=== PATIENT | female | born 1985 ===

== ENCOUNTER 2022-05-04 15:23 | Inpatient (IN) | payer MEDICAID, OTHER ==
[2022-05-04] MEDS ORDERED: MAGNESIUM HYDROXIDE 2,400 MG/10 ML CUP PO PRN (15:50)
[2022-05-04] MEDS ORDERED: MAG HYDROX/AL HYDROX/SIMETH 30 ML CUP PO PRN (15:50)
[2022-05-04] MEDS ORDERED: LORazepam 1 MG TAB PO PRN (15:50)
[2022-05-04] MEDS ORDERED: HALOPERIDOL LACTATE 5 MG/ML 1 ML VIAL IM PRN (15:50)
[2022-05-04] MEDS ORDERED: LORazepam 2 MG/ML INJ IM PRN (15:52)
[2022-05-04] MEDS ORDERED: haloperidoL 5 MG TAB PO PRN (15:52)
[2022-05-04] MEDS: INSULIN DETEMIR (LEVEMIR) 100 UNIT/ML SYR SQ SCH (23:41)
[2022-05-04] MEDS: metFORMIN 500 MG TAB PO SCH (23:41)
[2022-05-05] MEDS: LEVOTHYROXINE 100 MCG TAB PO SCH (06:35)
[2022-05-05 07:46] LABS: Glucose,Whole Blood 85 mg/dL (70-110)
[2022-05-05] MEDS: metFORMIN 500 MG TAB PO SCH ×2 (08:31→20:27)
[2022-05-05 12:54] LABS: Glucose,Whole Blood 104 mg/dL (70-110)
--- NOTE | 2022-05-05 14:27 | P.HP ---
Psychiatric H&P - . H&P Date: 05/05/22 History & Physical: Allergies Allergy/AdvReac Type Severity Reaction Status Date / Time No Known Allergies Allergy Verified 05/04/22 15:38 Vital Signs Temp 97.1 F L 05/05/22 00:24 Pulse 115 H 05/05/22 00:24 Resp 16 05/05/22 00:24 BP 120/69 05/05/22 00:24 Pulse Ox FiO2 Intake & Output 05/04/22 05/05/22 05/05/22 18:59 06:59 18:59 Weight 95.45 kg Laboratory Last Values POC Glucose (mg/dL) 104 mg/dL (70-110) 05/05/22 12:51 POC Glu Licensed Practical Nurse ID Jen Sorto 05/05/22 12:51 05/05/22 14:26 IDENTIFYING DATA: Patient is a , self-employed, 37-year-old female with significant history of schizophrenia who presented from [facility] under petition and certification for psychotic symptoms. HPI: Patient presented to the hospital on 05/05/2022, brought in to our hospital under petition and certification from [facility] for acute psychosis. As per petition filled out by the RN at [facility], "she has been noncompliant with medications for months. She states that she does not feel alright in the community and thinks that she needs help. She exhibits aggressive thoughts." As per initial clinical certification, "patient has a history of schizophrenia and she has been off her medications for 6+ months. She now has aggressive thoughts and bizarre thought processes." Upon evaluation or psychiatric unit, the patient endorses significant delusional thought content. She reports that she is of heritage and that she has had strong desire to pick up and delivery driver a cnc router operator knife and walk to the [facility] and, "kill every white person there." She reports that she receives special messages and has visions of her past life as a as well as a past life as a witch. She does endorse auditory and visual hallucinations. In regards to mood symptoms, the patient is not reporting any significant symptoms of depression. She does report a history of a suicide attempt by cutti ng her wrist however states that it was not an actual true suicide attempt but rather a ritual to "cleanout my blood." This occurred more than 5 years ago..She does report that she has not slept in the past 3 days prior to her admission to this hospital. In regards to her psychiatric history, the patient reports that she first was involved in psychiatric care when she was 26 years old. She reports his long- standing history of schizophrenia and has had numerous inpatient psychiatric admissions. She is agreeable to sign herself voluntarily onto the psychiatric unit and start medications with plans to transition to a long-acting injectable. PAST PSYCHIATRIC HISTORY: Patient states that she has been pursued diagnosed with schizophrenia and bipolar disorder. The patient is able to recall being previously prescribed Prolixin and Risperdal. She also states that she may have tried lithium and Depakote in the past as well. The patient was last hospitalized in [facility] earlier this year. She also reports at least 2 admissions at [facility] and one admission at [facility]. She is reportedly not open with any outpatient psychiatric services at this time. The patient reports one prior attempt at suicide however states that it was not with the intention to kill herself but that she cut her wrist to "clean the blood." PMH: Diabetes, thyroid disorder ALLERGIES:. NO KNOWN DRUG ALLERGIES CHEMICAL DEPENDENCY HISTORY:. Patient reports previously experimenting with history of attempts and acid. She reports she last used cocaine when she was 22 years old. She reports occasional marijuana use. She reports occasional alcohol use. She denies any tobacco use. FAMILY PSYCHIATRIC/SUBSTANCE USE HISTORY: The patient reports that her sister is schizophrenic as well as her maternal grandmother. SOCIAL HISTORY: Patient was born and raised in [place], [place] She is and has one child. Her child is 11 years old and she lives with her ex-fianc. The patient is self-employed as a musician. MENTAL STATUS EXAM: General Appearance: Patient appears to be stated age is alert, directable, and attempts to cooperate. Patient appears to have slightly disheveled hygiene and grooming. Behavior: Patient is seated without any agitated behavior. Psychomotor slowing is evident. Speech: Patient's speech is fluent and nonpressured. Monotone. Mood/Affect: Patient reports their mood is doing okay, affect is congruent and blunted. Suicidality/Homicidality: Patient is currently denying any suicidal or homicidal ideation. Perceptions: Patient endorses both auditory and visual hallucinations. Though content/process: Overt bizarre delusional thought content is endorsed. Ideas of reference are evident. Memory and concentration: AOX3, grossly intact for the purposes of this session. Can spell "WORLD" backwards Judgment and insight: Fair STRENGTHS/WEAKNESSES: Strength is that the patient is resilient and has some fair insight. Weakness is that the patient is nonadherent with treatment and severely mentally ill. INTELLECT: average IMPRESSIONS: Schizophrenia Cannabis use disorder PLAN: -Patient is admitted under voluntary status to MHU for stabilization of psychiatric symptoms and safety. Patient signed adult voluntary form and medication consent and is placed in patient's chart. -Medications : Will start patient on Invega 3 mg by mouth at bedtime for mood stabilization/psychosis [place] 450 mg by mouth twice a day for mood stabilization -Ativan and Haldol PRN for agitation/aggression -Patient was counselled on substance abuse and desired to cut back on use -Patient was informed of the risks, benefits and side effects of the medication and patient verbally consented to taking the medications. Patient signed med consent form and was placed in chart. -Internal Medicine consult to perform medical evaluation and physical. -SW on board for discharge planning. Encourage patient to participate in groups to work on coping skills.
[2022-05-05 17:39] LABS: Glucose,Whole Blood 133 mg/dL (70-110)
[2022-05-05 20:10] LABS: Glucose,Whole Blood 157 mg/dL (70-110)
[2022-05-05] MEDS: LITHIUM CARBONATE 150 MG CAP PO SCH (20:27)
[2022-05-05] MEDS: INSULIN DETEMIR (LEVEMIR) 100 UNIT/ML SYR SQ SCH (20:31)
[2022-05-05] MEDS ORDERED: PALIPERIDONE 3 MG TAB.ER.24 PO SCH (21:00)
--- NOTE | 2022-05-06 03:59 | P.CONS ---
History of Present Illness - Reason for Consult Consult date: 05/05/22 - History of Present Illness The patient is a 37-year-old female with a PMH of type II DM, hypothyroidism, and schizophrenia who was transferred to [facility] from [facility] where the patient was brought to for erratic behavior. She was admitted to the mental health unit at [facility] where she was seen with mental health unit RN Brett. the patient was actively psychotic during the interview. The patient reported that she was wishing to slit her mom's throat due to the injustices that have been done and her people. She had flight of ideas and was paranoid. She denied any physical complaints however. She denied experiencing chest discomfort, shortness of breath, fever, chills, cough, nausea, vomiting, abdominal pain, diarrhea. Review of systems: Pertinent positives and negatives as discussed in HPI, a complete review of systems was performed and all other systems are negative. Physical examination: General: Disheveled, no distress, appears at stated age, overweight Derm: no unusual rashes/lesions, no unusual ecchymoses, warm, dry Head: atraumatic, normocephalic, symmetric Eyes: EOMI, no lid lag, anicteric sclera ENT: Nose and ears atraumatic, no thrush, no pharyngeal erythema Neck: trachea midline, supple Mouth: no lip lesion, mucus membranes moist Cardiovascular: S1S2 reg, no murmur, no edema Lungs: CTA bilateral, no rhonchi, no rales , no accessory muscle use Abdominal: soft, nontender to palpation, no guarding Ext: no gross muscle atrophy, no contractures, Neuro: No gross focal neuro deficits noted Psych: Alert, oriented, flight of ideas, tangentiality, paranoid Assessment/plan Chronic conditions: Type II DM, hypothyroidism -Continue with home medications Psychosis -As per psychiatry Thank you for allowing us to participate in the care of this patient. We will follow peripherally. Do not hesitate to contact us with questions. Someone can be reached from the [facility] hospitalist group at all hours of the day at [phone]. Past Medical History - Past Family History Mother Family Medical History: Unable to Obtain Additional Family Medical History / Comment(s): Patient actively psychotic and did not provide a good history Medications and Allergies Home Medications Medication Instructions Recorded Confirmed Type Insulin Detemir (Levemir) [Levemir] 20 unit SQ HS 05/04/22 05/04/22 History Levothyroxine Sodium [Synthroid] 200 mcg PO DAILY 05/04/22 05/04/22 History metFORMIN HCL [Glucophage] 500 mg PO BID 05/04/22 05/04/22 History Allergies Allergy/AdvReac Type Severity Reaction Status Date / Time No Known Allergies Allergy Verified 05/04/22 15:38 Physical Exam Vitals: Vital Signs Temp Pulse Resp BP 05/05/22 00:24 97.1 F L 115 H 16 120/69 Results Labs: Abnormal Lab Results - Last 24 Hours (Table) 05/05/22 05/05/22 Range/Units 17:35 20:09 POC Glucose (mg/dL) 133 H 157 H (70-110) mg/dL
[2022-05-06] MEDS: LEVOTHYROXINE 100 MCG TAB PO SCH (05:29)
[2022-05-06 07:49] LABS: Glucose,Whole Blood 107 mg/dL (70-110)
[2022-05-06] MEDS: LITHIUM CARBONATE 150 MG CAP PO SCH ×2 (09:24→20:13)
[2022-05-06] MEDS: metFORMIN 500 MG TAB PO SCH ×2 (09:25→20:13)
--- NOTE | 2022-05-06 11:10 | P.PN ---
Progress Note - Text Progress Note Date: 05/06/22 Interval History: Patient was seen wandering the hallways and was directable and agreeable to speak with creative services writer in the office. Currently, the patient continues to endorse auditory and visual hallucinations. She states that she sees and hears demons "only when they choose to present themselves." She reports that she last experienced visual hallucinations this morning. She does report auditory hallucinations in the form of laughter and persecutory statements. She ailyn nues to report a desire to go to the [facility] with a furnace repairer knife and kill everyone however states that she would not do this as she knows it is wrong. The patient does report that her sleep has improved. She has been adherent with her medication is not endorsing any significant side effects. She reports no issues regarding her appetite. She states that she feels overall "a little bit clearer today." Mental Status Exam: General Appearance: Patient appears to be stated age is alert, directable, and cooperative. Mildly improved hygiene and grooming. Behavior: Patient is calmly seated without any agitated behavior. Speech: Patient's speech is fluent and nonpressured. More spontaneous today. Mood/Affect: Mood is improving mildly, affect is congruent and blunted. Suicidality/Homicidality: Patient endorses homicidal ideation however denies any suicidal ideation. Perceptions: Patient is endorsing auditory and visual hallucinations. Though content/process: The patient continues to endorse delusional thought content. Memory and concentration: AOX3, grossly intact for the purposes of this session Judgment and insight: Improving mildly Vital Signs Temp 97.1 F L 05/06/22 06:39 Pulse 108 H 05/06/22 06:39 Resp 16 05/06/22 06:39 BP 105/54 05/06/22 06:39 Pulse Ox 99 05/06/22 06:39 FiO2 Laboratory Results - Last 24 Hours 05/05/22 05/05/22 05/05/22 12:51 17:35 20:09 POC Glucose (mg/dL) 104 133 H 157 H POC Glu Turbine Attendant ID Jen Sorto Samantha Keyworth, Toni 05/06/22 07:48 POC Glucose (mg/dL) 107 POC Glu Turbine Attendant ID Lulu Abdalla Assessment Schizophrenia Cannabis use disorder Plan: -Patient continues to meet criteria for inpatient psychiatric admission for symptom stabilization and safety. Patient has signed adult voluntary form and medication consent and was placed in patient's chart. -Medications: Increase Invega to 6 mg by mouth at bedtime for mood stabilization/psychosis [place] 450 mg by mouth twice a day for mood stabilization. -When necessary Ativan and Haldol for agitation/aggression. -SW on board for discharge planning. Encouraged the patient to participate in milieu.
[2022-05-06 12:58] LABS: Glucose,Whole Blood 139 mg/dL (70-110)
[2022-05-06 17:41] LABS: Glucose,Whole Blood 118 mg/dL (70-110)
[2022-05-06] MEDS: INSULIN DETEMIR (LEVEMIR) 100 UNIT/ML SYR SQ SCH (20:13)
[2022-05-06 20:23] LABS: Glucose,Whole Blood 175 mg/dL (70-110)
[2022-05-06] MEDS ORDERED: PALIPERIDONE 3 MG TAB.ER.24 PO SCH (21:00)
[2022-05-07] MEDS: LEVOTHYROXINE 100 MCG TAB PO SCH (06:07)
[2022-05-07 07:55] LABS: Glucose,Whole Blood 95 mg/dL (70-110)
[2022-05-07] MEDS: LITHIUM CARBONATE 150 MG CAP PO SCH ×2 (08:59→20:31)
[2022-05-07] MEDS: metFORMIN 500 MG TAB PO SCH ×2 (08:59→20:31)
--- NOTE | 2022-05-07 11:24 | P.PN ---
Progress Note - Text Progress Note Date: 05/07/22 Interval History: Patient was seen wandering the hallways and was directable and agreeable to speak with adjusto writer operator in the office. Patient continues to endorse auditory hallucinations in the form of "ohms - like meditation." She also reports visual hallucinations and the sensation that she is able to see into other dimensions and parallel timelines. She is currently denying any suicidal or homicidal ideation. She reports that she no longer feels homicidal or the desire to belt picker a compress engineer knife and go to [place] and kill everybody. She has been adherent with her medications and is not reporting any significant side effects. She reports no issues regarding her sleep or her appetite. She is in agreement with the plan to transition to Invega Sustenna over this weekend. Mental Status Exam: General Appearance: Patient appears to be stated age is alert, directable, and cooperative. Behavior: Patient is calmly seated without any agitated behavior. Speech: Patient's speech is fluent and nonpressured. Spontaneous. Mood/Affect: Mood is improving mildly, affect is congruent and constricted. Suicidality/Homicidality: Patient is denying any suicidal or homicidal ideation. Perceptions: Patient is endorsing auditory and visual hallucinations. Though content/process: The patient continues to endorse delusional thought content. Memory and concentration: AOX3, grossly intact for the purposes of this session Judgment and insight: Improving mildly Vital Signs Temp 97.9 F 05/07/22 06:35 Pulse 86 05/07/22 06:35 Resp 17 05/07/22 06:35 BP 101/54 05/07/22 06:35 Pulse Ox 99 05/07/22 06:35 FiO2 Laboratory Results - Last 24 Hours 05/06/22 05/06/22 05/06/22 12:57 17:38 20:11 POC Glucose (mg/dL) 139 H 118 H 175 H POC Glu Instrument Maker Apprentice ID Lulu Abdalla Garrett Hadwin, Garrett 05/07/22 07:54 POC Glucose (mg/dL) 95 POC Glu Instrument Maker Apprentice ID Ava David Assessment Schizophrenia Cannabis use disorder Plan: -Patient continues to meet criteria for inpatient psychiatric admission for symptom stabilization and safety. Patient has signed adult voluntary form and medication consent and was placed in patient's chart. -Medications: Increase Invega to 9 mg by mouth at bedtime for mood stabilization/psychosis. We will administer her Invega Sustenna 234 mg IM on Tuesday. [place] 450 mg by mouth twice a day for mood stabilization. [place] level be ordred this . -When necessary Ativan and Haldol for agitation/aggression. -SW on board for discharge planning. Encouraged the patient to participate in milieu.
--- NOTE | 2022-05-07 11:26 | P.PN ---
Progress Note - Text Progress Note Date: 05/07/22 Interval History: Patient was seen wandering the hallways and was directable and agreeable to speak with travel writer in the office. Patient continues to endorse auditory hallucinations in the form of "ohms - like meditation." She also reports visual hallucinations and the sensation that she is able to see into other dimensions and parallel timelines. She is currently denying any suicidal or homicidal ideation. She reports that she no longer feels homicidal or the desire to case picker a welfare adviser knife and go to [place] and kill everybody. She has been adherent with her medications and is not reporting any significant side effects. She reports no issues regarding her sleep or her appetite. She is in agreement with the plan to transition to Invega Sustenna over this weekend. Mental Status Exam: General Appearance: Patient appears to be stated age is alert, directable, and cooperative. Behavior: Patient is calmly seated without any agitated behavior. Speech: Patient's speech is fluent and nonpressured. Spontaneous. Mood/Affect: Mood is improving mildly, affect is congruent and constricted. Suicidality/Homicidality: Patient is denying any suicidal or homicidal ideation. Perceptions: Patient is endorsing auditory and visual hallucinations. Though content/process: The patient continues to endorse delusional thought content. Memory and concentration: AOX3, grossly intact for the purposes of this session Judgment and insight: Improving mildly Vital Signs Temp 97.9 F 05/07/22 06:35 Pulse 86 05/07/22 06:35 Resp 17 05/07/22 06:35 BP 101/54 05/07/22 06:35 Pulse Ox 99 05/07/22 06:35 FiO2 Laboratory Results - Last 24 Hours 05/06/22 05/06/22 05/06/22 12:57 17:38 20:11 POC Glucose (mg/dL) 139 H 118 H 175 H POC Glu Toll Relief Operator ID Lulu Abdalla Garrett Hadwin, Garrett 05/07/22 07:54 POC Glucose (mg/dL) 95 POC Glu Toll Relief Operator ID Ava David Assessment Schizophrenia Cannabis use disorder Plan: -Patient continues to meet criteria for inpatient psychiatric admission for symptom stabilization and safety. Patient has signed adult voluntary form and medication consent and was placed in patient's chart. -Medications: Increase Invega to 9 mg by mouth at bedtime for mood stabilization/psychosis. We will administer her Invega Sustenna 234 mg IM on Tuesday. [place] 450 mg by mouth twice a day for mood stabilization. [place] level ordered. -When necessary Ativan and Haldol for agitation/aggression. -SW on board for discharge planning. Encouraged the patient to participate in milieu.
[2022-05-07 12:17] LABS: ALT 179 U/L (4-34); AST 87 U/L (14-36); African American GFR (CKD) >90 (>60 ml/min/1.73 sqM); Albumin 3.8 g/dL (3.5-5.0); Alkaline Phosphatase 234 U/L (38-126); Anion Gap 13 mmol/L; Blood Urea Nitrogen 7 mg/dL (7-17); Calcium 8.1 mg/dL (8.4-10.2); Carbon Dioxide 26 mmol/L (22-30); Chloride 103 mmol/L (98-107); Glucose 152 mg/dL (74-99); Lithium 0.8 mmol/L; Non-African American GFR(CKD) >90 (>60 ml/min/1.73 sqM); Potassium 3.9 mmol/L (3.5-5.1); Sodium 142 mmol/L (137-145); Total Bilirubin 0.6 mg/dL (0.2-1.3); Total Protein 6.3 g/dL (6.3-8.2)
[2022-05-07 12:19] LABS: Basophils % (A) 0 %; Eosinophils # (A) 0.2 k/uL (0-0.7); Eosinophils % (A) 3 %; HCT 31.6 % (34.0-46.0); HGB 9.3 gm/dL (11.4-16.0); Hypochromasia Marked; Lymphocytes # (A) 1.6 k/uL (1.0-4.8); Lymphocytes % (A) 29 %; MCH 18.8 pg (25.0-35.0); MCHC 29.3 g/dL (31.0-37.0); MCV 63.9 fL (80.0-100.0); Microcytosis Marked; Monocytes # (A) 0.2 k/uL (0-1.0); Monocytes % (A) 4 %; Neutrophils # (A) 3.6 k/uL (1.3-7.7); Neutrophils % (A) 63 %; Platelet Count 118 k/uL (150-450); RBC 4.94 m/uL (3.80-5.40); RDW 15.2 % (11.5-15.5); WBC 5.7 k/uL (3.8-10.6)
[2022-05-07 12:37] LABS: Glucose,Whole Blood 145 mg/dL (70-110)
[2022-05-07 17:47] LABS: Glucose,Whole Blood 129 mg/dL (70-110)
[2022-05-07 20:13] LABS: Glucose,Whole Blood 224 mg/dL (70-110)
[2022-05-07] MEDS: INSULIN DETEMIR (LEVEMIR) 100 UNIT/ML SYR SQ SCH (20:30)
[2022-05-07] MEDS: PALIPERIDONE 3 MG TAB.ER.24 PO SCH (20:31)
[2022-05-08] MEDS: LEVOTHYROXINE 100 MCG TAB PO SCH (06:34)
[2022-05-08 07:47] LABS: Glucose,Whole Blood 103 mg/dL (70-110)
[2022-05-08] MEDS: metFORMIN 500 MG TAB PO SCH ×2 (08:29→20:20)
[2022-05-08] MEDS: LITHIUM CARBONATE 150 MG CAP PO SCH ×2 (08:29→20:20)
[2022-05-08 12:38] LABS: Glucose,Whole Blood 96 mg/dL (70-110)
[2022-05-08 17:35] LABS: Glucose,Whole Blood 148 mg/dL (70-110)
--- NOTE | 2022-05-08 19:39 | P.PN ---
Progress Note - Text Progress Note Date: 05/08/22 Interval History: Patient was seen resting in bed and was agreeable to speak with policy writer sales. She is denying any suicidal or homicidal ideation. She denies any auditory or visual hallucinations today. She has been compliant with medications and denies significant side effects. She reports good mood, sleep and appetite, however she does have a 1-2 second latency in her responses. She is in agreement with the plan to transition to Invega Sustenna tomorrow (05/09/22). She is attending groups. Mental Status Exam: General Appearance: Patient appears to be stated age, is resting in bed, fair hygiene and grooming. Behavior: Patient is laying in bed without any agitated behavior. Speech: Patient's speech is fluent and non-pressured. Mood/Affect: Mood is improving mildly, affect is congruent and constricted. Suicidality/Homicidality: Patient is denying any suicidal or homicidal ideation. Perceptions: Patient is denying auditory and visual hallucinations. Though content/process: No delusional thoughts expressed to me today, however there is a 1-2 second latency in responses, thoughts are linear but brief. Memory and concentration: AOX3, grossly intact for the purposes of this session Judgment and insight: Improving mildly Assessment Schizophrenia Cannabis use disorder Plan: -Patient continues to meet criteria for inpatient psychiatric admission for symptom stabilization and safety. -Medications: Continue Invega to 9 mg by mouth at bedtime for mood stabilization/psychosis with plan to give Invega Sustenna 234 mg IM tomorrow 05/09/2022. Continue [place] 450 mg by mouth twice a day for mood stabilization. [place] level ordered (not yet completed). -When necessary Ativan and Haldol for agitation/aggression. - Encouraged the patient to participate in milieu.
[2022-05-08 19:56] LABS: Glucose,Whole Blood 167 mg/dL (70-110)
[2022-05-08] MEDS: INSULIN DETEMIR (LEVEMIR) 100 UNIT/ML SYR SQ SCH (20:20)
[2022-05-08] MEDS: PALIPERIDONE 3 MG TAB.ER.24 PO SCH (20:20)
[2022-05-09] MEDS: LEVOTHYROXINE 100 MCG TAB PO SCH (06:22)
[2022-05-09 07:52] LABS: Glucose,Whole Blood 109 mg/dL (70-110)
[2022-05-09] MEDS: LITHIUM CARBONATE 150 MG CAP PO SCH ×2 (08:51→20:08)
[2022-05-09] MEDS: metFORMIN 500 MG TAB PO SCH ×2 (08:51→20:08)
[2022-05-09] MEDS ORDERED: PALIPERIDONE IM 234 MG/1.5 ML SYG IM ONE (09:00)
[2022-05-09 12:43] LABS: Glucose,Whole Blood 96 mg/dL (70-110)
[2022-05-09] MEDS: ACETAMINOPHEN TAB 325 MG TAB PO PRN ×2 (15:28→20:09)
[2022-05-09 17:45] LABS: Glucose,Whole Blood 116 mg/dL (70-110)
[2022-05-09 19:59] LABS: Glucose,Whole Blood 180 mg/dL (70-110)
[2022-05-09] MEDS: INSULIN DETEMIR (LEVEMIR) 100 UNIT/ML SYR SQ SCH (20:07)
--- NOTE | 2022-05-09 20:23 | P.PN ---
Progress Note - Text Progress Note Date: 05/09/22 Interval History: Patient was seen resting in bed and was agreeable to speak with business writer. She is denying any suicidal or homicidal ideation. She denies any auditory or visual hallucinations today. She has been compliant with medications and denies significant side effects. She reports good mood, sleep and appetite. She received her Invega Sustenna 234 mg IM today however she does not recall getting it. She denies medication side effects. Mental Status Exam: General Appearance: Patient appears to be stated age, is resting in bed, fair hygiene and grooming. Behavior: Patient is laying in bed without any agitated behavior. Speech: Patient's speech is fluent and non-pressured. Mood/Affect: Mood is improving mildly, affect is congruent and constricted. Suicidality/Homicidality: Patient is denying any suicidal or homicidal ideation. Perceptions: Patient is denying auditory and visual hallucinations. Though content/process: No delusional thoughts expressed to me today, thoughts are linear but brief. Memory and concentration: AOX3, grossly intact for the purposes of this session Judgment and insight: Improving mildly Assessment Schizophrenia Cannabis use disorder Plan: -Patient continues to meet criteria for inpatient psychiatric admission for symptom stabilization and safety. -Medications: Invega Sustenna 234 mg IM given today 05/09/2022. Decrease oral Invega to 6 mg QHS starting tonight for psychosis. Continue [place] 450 mg by mouth twice a day for mood stabilization. [place] level ordered (not yet completed). -When necessary Ativan and Haldol for agitation/aggression. - Encouraged the patient to participate in milieu.
[2022-05-09] MEDS ORDERED: PALIPERIDONE 3 MG TAB.ER.24 PO SCH (21:00)
[2022-05-10] MEDS: LEVOTHYROXINE 100 MCG TAB PO SCH (06:03)
[2022-05-10 06:40] VITALS: BP 98/55; PULSE 61; RESP 16; TEMP 97.7
[2022-05-10 07:46] LABS: Glucose,Whole Blood 107 mg/dL (70-110)
[2022-05-10] MEDS: LITHIUM CARBONATE 150 MG CAP PO SCH (08:58)
[2022-05-10] MEDS: metFORMIN 500 MG TAB PO SCH (08:58)
[2022-05-10 12:45] LABS: Glucose,Whole Blood 106 mg/dL (70-110)
--- NOTE | 2022-05-10 12:52 | P.DS ---
Providers Date of admission: 05/04/22 22:53 Expected date of discharge: 05/10/22 Attending physician: Ck Fang MD Consults: 05/04/22 15:50 Consult Physician Routine Consulting Provider: Miquel Morrissey Consult Reason/Comments: H&P and medical Do you want consulting provider notified?: Yes Primary care physician: Stated None - Discharge Diagnosis(es) (1) Schizophrenia Current Visit: Yes Status: Acute Priority: High (2) Cannabis use disorder Current Visit: Yes Status: Chronic Priority: Medium Hospital Course: Admission HPI: Patient is a , self-employed, 37-year-old female with significant history of schizophrenia who presented from [facility] under petition and certification for psychotic symptoms. Patient presented to the hospital on 05/05/2022, brought in to our hospital under petition and certification from [facility] for acute psychosis. As per petition filled out by the RN at [place], "she has been noncompliant with medications for months. She states that she does not feel alright in the community and thinks that she needs help. She exhibits aggressive thoughts." As per initial clinical certification, "patient has a history of schizophrenia and she has been off her medications for 6+ months. She now has aggressive thoughts and bizarre thought processes." Upon evaluation or psychiatric unit, the patient endorses significant delusional thought content. She reports that she is of heritage and that she has had strong desire to supervisor opening and picking a technical assistant knife and walk to the [facility] and, "kill every white person there." She reports that she receives special messages and has visions of her past life as a as well as a past life as a witch. She does endorse auditory and visual hallucinations. In regards to mood symptoms, the patient is not reporting any significant symptoms of depression. She does report a history of a suicide attempt by cutt ing her wrist however states that it was not an actual true suicide attempt but rather a ritual to "cleanout my blood." This occurred more than 5 years ago..She does report that she has not slept in the past 3 days prior to her admission to this hospital. In regards to her psychiatric history, the patient reports that she first was involved in psychiatric care when she was 26 years old. She reports his long- standing history of schizophrenia and has had numerous inpatient psychiatric admissions. She is agreeable to sign herself voluntarily onto the psychiatric unit and start medications with plans to transition to a long-acting injectable. Patient states that she has been pursued diagnosed with schizophrenia and bipolar disorder. The patient is able to recall being previously prescribed Prolixin and Risperdal. She also states that she may have tried lithium and Depakote in the past as well. The patient was last hospitalized in [facility] earlier this year. She also reports at least [address] [facility] and one admission at [facility]. She is reportedly not open with any outpatient psychiatric services at this time. The patient reports one prior attempt at suicide however states that it was not with the intention to kill herself but that she cut her wrist to "clean the blood." Hospital course: Upon admission to the unit patient was initially presenting as disheveled, acutely psychotic, and responding to internal stimuli. Patient was however directable and agreeable to commence treatment. Patient got along well with other patients on the unit and followed unit protocol. Patient was compliant with the medications and denied any side effects throughout hospital course. Patient was started on Invega and lithium for mood stabilization and psychosis. Patient spoke of her stressors and engaged in therapy both group and individual. Patient was also seen by medical team for history and physical exam. Over the course the hospital physician, the patient despite significant improvement in regards her target symptoms of psychosis. Furthermore, she began to address her hydration and grooming and her range of affect increased. She was agreeable to the transition to Invega Sustenna. She tolerated the medication well. On the day of discharge, the patient is not reporting any suicidal or homicidal ideation, intention, and/or plan. She is not reporting any auditory or visual hallucinations. She reports no paranoia or other delusions. The patient does have a significant history of substance abuse and was consequently abstaining also substances including alcohol and marijuana. The patient denies any access to firearms or other weapons. The patient was counseled at length the importance of medication adherence and appropriate outpatient follow-up. Prior to discharge, family meeting was arranged by social work coordinator to answer any questions and ensure safety. Mental status exam: General Appearance: Patient appears to be stated age is alert, pleasant, and cooperative. Patient is in no acute distress and has fair hygiene and grooming Behavior: Patient is calmly seated without any agitated behavior. Speech: Patient's speech is fluent and nonpressured. Mood/Affect: Patient reports their mood is "much better", affect is congruent and euthymic. Constricted in range. Suicidality/Homicidality: Patient denies having any suicidal or homicidal ideation intent or plan. Perceptions: Patient denies any auditory or visual hallucinations. Though content/process: There is no evidence of any delusional thought content and thought process is linear and goal-directed. Patient is future and goal oriented. Memory and concentration: AOX3, grossly intact for the purposes of this session. Can spell "WORLD" backwards correctly. Judgment and insight: Improved with guarded prognosis Impression: Schizophrenia Cannabis use disorder Plan: -Continue with discharge today as patient has improved and stabilized psychiatrically and is not currently an imminent threat to herself and/or others. Patient will remain at chronically elevated risk for harm to self and/or others due to her severity of mental illness and nonadherence with treatment. -Continue medications: Aide Sustenna 156 mg IM is due on 05/16/2022. She received first loading dose of 234 mg IM on 05/09/2022. Ancient Oaks 450 mg by mouth twice daily for mood stabilization. -Patient was counseled on the need for medication compliance and appropriate follow-up at mental health and also primary care for medical issues. Patient verbalized understanding and agreed. -Social work to arrange for and conduct family meeting to ensure safety upon discharge and answer any questions/concerns. Social work also to arrange for patients follow up appointments with [facility] for psychiatric care along with follow up with primary care provider. -Patient counseled on abstaining from recreational drugs and marijuana and alcohol. Was informed/educated on the adverse effects on their physical and mental health. Patient verbally agreed and understood. -Patient was instructed to return to the hospital or seek immediate medical care if their psychiatric or medical symptoms do worsen or reoccur. -Psychoeducation and supportive therapy provided to patient. Risks and benefits of pharmacological treatment versus the risks and benefits of nontreatment weight and discussed. Informed consent discussion held. Common side effects of psychotropics discussed such as, but not limited to headache, GI disturbance, sexual dysfunction, movement disorders, sedation, and orthostatic hypotension. Life threatening and blackbox warnings of prescribed medications also discussed. Potential risks of operating a vehicle or heavy machinery discussed with patient at length. Advised on importance of compliance and a reliable and responsible manner. Patient advised to review FDA consumer labeling of all medications prior to taking. Patient verbalized understanding of potential risks, and agrees with current treatment plan. Patient advised to medically contact physician/emergency personnel if any acute changes in condition occur. Vital Signs Temp 97.7 F 05/10/22 06:39 Pulse 61 05/10/22 06:39 Resp 16 05/10/22 06:39 BP 98/55 05/10/22 06:39 Pulse Ox 99 05/10/22 06:39 FiO2 Intake & Output 05/09/22 05/10/22 05/10/22 18:59 06:59 18:59 Weight 96.6 kg Laboratory Results WBC 5.7 k/uL (3.8-10.6) 05/07/22 11:38 RBC 4.94 m/uL (3.80-5.40) 05/07/22 11:38 Hgb 9.3 gm/dL (11.4-16.0) L 05/07/22 11:38 Hct 31.6 % (34.0-46.0) L 05/07/22 11:38 MCV 63.9 fL (80.0-100.0) L 05/07/22 11:38 MCH 18.8 pg (25.0-35.0) L 05/07/22 11:38 MCHC 29.3 g/dL (31.0-37.0) L 05/07/22 11:38 RDW 15.2 % (11.5-15.5) 05/07/22 11:38 Plt Count 118 k/uL (150-450) L 05/07/22 11:38 MPV 8.0 05/07/22 11:38 Neutrophils % 63 % 05/07/22 11:38 Lymphocytes % 29 % 05/07/22 11:38 Monocytes % 4 % 05/07/22 11:38 Eosinophils % 3 % 05/07/22 11:38 Basophils % 0 % 05/07/22 11:38 Neutrophils # 3.6 k/uL (1.3-7.7) 05/07/22 11:38 Lymphocytes # 1.6 k/uL (1.0-4.8) 05/07/22 11:38 Monocytes # 0.2 k/uL (0-1.0) 05/07/22 11:38 Eosinophils # 0.2 k/uL (0-0.7) 05/07/22 11:38 Basophils # 0.0 k/uL (0-0.2) 05/07/22 11:38 Hypochromasia Marked 05/07/22 11:38 Microcytosis Marked 05/07/22 11:38 Sodium 142 mmol/L (137-145) 05/07/22 11:38 Potassium 3.9 mmol/L (3.5-5.1) 05/07/22 11:38 Chloride 103 mmol/L (98-107) 05/07/22 11:38 Carbon Dioxide 26 mmol/L (22-30) 05/07/22 11:38 Anion Gap 13 mmol/L 05/07/22 11:38 BUN 7 mg/dL (7-17) 05/07/22 11:38 Creatinine 0.62 mg/dL (0.52-1.04) 05/07/22 11:38 Est GFR (CKD-EPI)AfAm >90 (>60 ml/min/1.73 sqM) 05/07/22 11:38 Est GFR (CKD-EPI)NonAf >90 (>60 ml/min/1.73 sqM) 05/07/22 11:38 Glucose 152 mg/dL (74-99) H 05/07/22 11:38 POC Glucose (mg/dL) 106 mg/dL (70-110) 05/10/22 12:43 POC Glu [employer] Mayank Nicholas 05/10/22 12:43 Calcium 8.1 mg/dL (8.4-10.2) L 05/07/22 11:38 Total Bilirubin 0.6 mg/dL (0.2-1.3) 05/07/22 11:38 AST 87 U/L (14-36) H 05/07/22 11:38 ALT 179 U/L (4-34) H 05/07/22 11:38 Alkaline Phosphatase 234 U/L (38-126) H 05/07/22 11:38 Total Protein 6.3 g/dL (6.3-8.2) 05/07/22 11:38 Albumin 3.8 g/dL (3.5-5.0) 05/07/22 11:38 Ancient Oaks 0.8 mmol/L 05/07/22 11:38 Allergies Allergy/AdvReac Type Severity Reaction Status Date / Time No Known Allergies Allergy Verified 05/09/22 15:29 Patient Condition at Discharge: Stable Plan - Discharge Summary New Discharge Prescriptions: New [place] Carbonate 450 mg PO BID 30 Days cap Paliperidone IM [Invega Sustenna] 156 mg IM QMONTHLY #1 each Continue metFORMIN HCL [Glucophage] 500 mg PO BID Insulin Detemir (Levemir) [Levemir] 20 unit SQ HS Levothyroxine Sodium [Synthroid] 200 mcg PO DAILY Discharge Medication List Insulin Detemir (Levemir) [Levemir] 20 unit SQ HS 05/04/22 [History] Levothyroxine Sodium [Synthroid] 200 mcg PO DAILY 05/04/22 [History] metFORMIN HCL [Glucophage] 500 mg PO BID 05/04/22 [History] [place] Carbonate 450 mg PO BID 30 Days cap 05/10/22 [Rx] Paliperidone IM [Invega Sustenna] 156 mg IM QMONTHLY #1 each 05/10/22 [Rx] Follow up Appointment(s)/Referral(s): [facility] [Other] - 05/11/22 12:00 pm (Appt is telehealth with [facility]) [facility] [Other] - 1 Week Patient Instructions/Handouts: Schizophrenia (DC) Activity/Diet/Wound Care/Special Instructions: Avoid the use of street drugs and alcohol. Take all prescriptions as prescribed. When you are in need of refills on your medications, please contact your medical provider and/or outpatient psychiatrist to have this done. Please go to scheduled outpatient appointment for aftercare treatment. If symptoms return or become worse, call the crisis line at and/or go to the nearest emergency room for evaluation. Discharge Disposition: HOME SELF-CARE
== END 2022-05-10 14:18 | disposition home or self-care (01) | DRG 885 ==
LOC: 3MHU 22:53
PROVIDERS: ADMIT Psychiatry & Neurology Psychiatry; ATTEND Psychiatry & Neurology Psychiatry
DX: F20.9 Schizophrenia, unspecified (principal); E11.9 Type 2 diabetes mellitus without complications; E03.9 Hypothyroidism, unspecified; F31.9 Bipolar disorder, unspecified; Z79.4 Long term (current) use of insulin; Z28.310 Unvaccinated for COVID-19; Z91.128 Patient's intentional underdosing of medication regimen for other reason; T50.906A Underdosing of unspecified drugs, medicaments and biological substances, initial encounter; F12.10 Cannabis abuse, uncomplicated; E66.3 Overweight; Z68.29 Body mass index [BMI] 29.0-29.9, adult; Z79.890 Hormone replacement therapy; Z79.84 Long term (current) use of oral hypoglycemic drugs; Z91.51 Personal history of suicidal behavior
CPT/HCPCS: 80053; 80178; 85025